=== PATIENT | male | born 1985 | race Caucasian/White ===

== ENCOUNTER → 2016-03-07 | Outpatient (CLI) | payer OTHER ==
[~2016-03-07] MED LIST: LISI-338 PO; MULT-208 PO; NAPR1TAB25 PO; OMEG300C PO
--- NOTE | 2016-03-07 17:16 | KCIC ---
PROCEDURE AP and lateral lumbar spine radiographs 03/07/2016 HISTORY Low back pain with history of previous lumbar spine surgery. FINDINGS Standing AP and 3 lateral digital radiographs of the lumbar spine were obtained. Comparison study is dated 01/24/2016. Mild S-shaped curvature of the thoracolumbar spine is seen. Te patient is status post anterior discectomy and fusion using an anterior plate, bone screws and bone graft material at L4-5 and L5-S1. The fusion hardware is unchanged. Degenerative changes are seen involving the lower thoracic disc spaces consisting disc space narrowing, vertebral endplate sclerosis and mild to moderate anterior vertebral body osteophyte formation. Degenerative changes consisting of vertebral endplate sclerosis and minimal anterior vertebral body osteophyte formation are seen at the L1-2, L2-3 and L3-4 disc spaces. Moderate anterolateral vertebral body osteophyte formation is again seen at L4-5. Degenerative changes are seen involving the facet joints of the lower lumbar spine. No fracture or subluxation is seen. IMPRESSION Postsurgical and degenerative changes are seen involving the lumbar spine, unchanged. No acute osseous abnormality is noted. Electronically signed by: Heber Cobb MD (Mar 07, 2016 17:15:32)
== END | disposition home or self-care (01) ==
LOC: KCIC 14:04
PROVIDERS: ATTEND Neurological Surgery
DX: M54.5 Low back pain (principal)
CPT/HCPCS: 72100

== ENCOUNTER 2021-04-26 21:41 | Emergency (ER) | payer SELFPAY ==
[~2021-04-26] VITALS: Ht 177.8 cm; Wt 180.3 kg
[~2021-04-26 21:41] MED LIST changes: -LISI-338 PO; +LISI5TAB15 PO
--- NOTE | 2021-04-26 23:11 | RAD ---
EXAM: Right foot 3 views. HISTORY: Pain after injury. COMPARISON: None. FINDINGS: Three views of the right foot are obtained. No fractures are identified. Alignment is normal. Joint spaces are maintained. There are small clothing examiner ior and plantar calcaneal spurs. An osseous bump along the dorsum of the talar neck can be seen in th e setting of anterior impingement. IMPRESSION: 1. No fracture. Electronically signed by: Usman Mccloud MD (04/26/2021 11:09 PM) [id number]
[2021-04-26] MEDS ORDERED: MELO7.5T5 PO (23:29)
--- NOTE | 2021-04-26 23:29 | PHYS DOC ---
Past Medical History Additional Past Medical Histor: hernia, broken right collarbone/rotator cuff Past Surgical History: Other Additional Past Surgical Histo: lumbar with cage General Adult EDM: Chief Complaint: FOOT INJURY PAIN HPI: HPI: Patient is a 35 year old male with no significant medical history presenting today complaining of 8 out of 10 right foot pain, patient states most of the pain is on the heel, symptoms began 2 months ago after stepping on something at work. Patient states has been working on his foot with no difficulties until today when he started feeling like he is stepping on glass on the right foot only. Patient states elevating the right foot relieves the pain. Review of Systems: Review of Systems: Constitutional: Denies fever or chills. [] Musculoskeletal: Reports right foot/heel pain that began 2 months ago Integument: Denies rash. [] Neurologic: Denies headache, focal weakness or sensory changes. [] Psychiatric: Denies depression or anxiety. [] Heart Score: C/O Chest Pain: N/A Risk Factors: Risk Factors: DM, Current or recent (<one month) smoker, HTN, HLP, family history of CAD, obesity. Risk Scores: Score 0 - 3: 2.5% MACE over next 6 weeks - Discharge Home Score 4 - 6: 20.3% MACE over next 6 weeks - Admit for Clinical Observation Score 7 - 10: 72.7% MACE over next 6 weeks - Early Invasive Strategies Allergies: Allergies: Allergies Coded Allergies Type Severity Reaction Last Updated Verified No Known Drug Allergies 04/26/21 No Physical Exam: PE: Constitutional: Well developed, well nourished, no acute distress, non-toxic appearance. [] Skin: Warm, dry, no erythema, no rash. [] Back: No tenderness, no CVA tenderness. [] Extremities: Right foot with no obvious deformity, tenderness diffusely on the right heel. No pain no tenderness to the navicular bone, no pain or tenderness the base of the fifth metatarsal of the right foot. No pain or tenderness on top of the right foot. Full range of motion to the right foot, and toes. +2 ri ght pedal pulse. Cap refill less than 2 seconds to right toes. Sensation intact to the right lower extremity. Neurologic: Alert and oriented X 3, normal motor function, normal sensory function, no focal deficits noted. [] Psychologic: Affect normal, judgement normal, mood normal. [] Current Patient Data: Vital Signs: Vital Signs Date Time Temp Pulse Resp B/P (MAP) Pulse Ox O2 Delivery O2 Flow Rate FiO2 04/26/21 21:45 98.4 102 20 195/100 (131) 96 Room Air 98.4 EKG: EKG: [] Radiology/Procedures: Radiology/Procedures: []PROCEDURE: FOOT RIGHT 3V EXAM: Right foot 3 views. HISTORY: Pain after injury. COMPARISON: None. FINDINGS: Three views of the right foot are obtained. No fractures are identified. Alignment is normal. Joint spaces are maintained. There are small posterior and plantar calcaneal spurs. An osseous bump along the dorsum of the talar neck can be seen in the setting of anterior impingement. IMPRESSION: 1. No fracture. Electronically signed by: Usman Mccloud MD (04/26/2021 11:09 PM) [id number] DICTATED and SIGNED BY: JAELYN MCCLOUD MD DATE: 04/26/21 [id number] Course & Med Decision Making: Course & Med Decision Making Pertinent Labs and Imaging studies reviewed. (See chart for details) This a 35-year-old male patient presenting to the ED today with right foot/heel pain, symptoms began 2 months ago. Right foot x-rays interpreted by radiologist as negative for any acute findings but noted for posterior and plantar calcaneal spurs. Discharge to home, provided Ortho for follow-up. Recommended padding the heels of his shoes to reduce pressure on the heel, OTC pain relievers also recommended Dragon Disclaimer: Dragon Disclaimer: This electronic medical record was generated, in whole or in part, using a voice recognition dictation system. Departure Departure Impression: Primary Impression: Bone spur of foot Disposition: HOME / SELF CARE / HOMELESS Condition: STABLE Referrals: NO PCP (PCP) INGRIS REYEZ MD follow up in 2 weeks as needed Patient Instructions: Heel Spur Additional Instructions: You were evaluated in the emergency room, you are noted to have bone spurs on your heel, please pad your shoes as we discussed. Dr. Sotelo insoles can help. You can follow-up with the provided orthopedic doctor in the next 2 weeks Scripts Meloxicam (MOBIC) 7.5 Mg Tablet 1 TAB PO DAILY, #30 TAB 1 Refill Prov: MUTUNGA,MARYSOL M CLINICAL NURSE LEADER 04/26/21 MARYSOL DOMINGUEZ APRN Apr 26, 2021 23:29
[2021-04-26 23:34] VITALS: BP 199/119
== END 2021-04-26 23:36 | disposition home or self-care (01) ==
LOC: ER 21:41
DX: M77.8 Other enthesopathies, not elsewhere classified (principal); M77.31 Calcaneal spur, right foot
CPT/HCPCS: 73630; 99283